=== PATIENT | male | born 1995 | race Caucasian/White ===

== ENCOUNTER 2018-11-11 10:39 | Emergency (ER) | payer OTHER ==
[2018-11-11] MEDS ORDERED: NS 500 ML IV ONE (10:45)
[2018-11-11] MEDS ORDERED: MORPHINE 4 MG/ML 1ML VIAL/SYRINGE (J2270) IV PRN (10:45)
[2018-11-11] MEDS ORDERED: ONDANSETRON 4MG/2ML VIAL (J2405) IV ONE (10:45)
[2018-11-11] MEDS ORDERED: ISOVUE-370 76% 100ML VIAL (Q9967) As Ordered ONE (10:47)
--- NOTE | 2018-11-11 11:14 | REP ---
CT Head without contrast HISTORY: Trauma COMPARISON: None There is no intraparenchymal hemorrhage, acute infarct, mass or midline shift. The ventricular system is normal in appearance. There is no extra cerebral collection. There is no fracture. The visualized sinuses are clear. IMPRESSION: There is no intracranial lesion. Electronically Signed by Tk Davis MD 11/11/2018 11:05 A
--- NOTE | 2018-11-11 11:20 | REP ---
CT cervical spine without contrast HISTORY: Trauma COMPARISON: None There is no acute fracture or subluxation. A small ossified density is present anterior to the C5-6 intervertebral disc. This represents ligamentous calcification. There is no disc bulge or herniation. The spinal canal and neural foramina are patent. The intervertebral discs and vertebral bodies are normal in height. IMPRESSION: There is no acute fracture or subluxation. Electronically Signed by Tk Davis MD 11/11/2018 11:11 A
--- NOTE | 2018-11-11 11:24 | REP ---
CT thoracic spine without contrast. HISTORY: Trauma COMPARISON : None There is no acute fracture or subluxation. There is no disc bulge or herniation. The spinal canal and neural foramina are patent. The intervertebral discs and vertebral bodies are normal in height. IMPRESSION: There is no acute fracture or subluxation. Electronically Signed by Tk Davis MD 11/11/2018 11:15 A
[2018-11-11 11:28] LABS: BASO % 0.2 % (0.0-1.0); EOS % 0.1 % (0.0-3.0); HEMATOCRIT 43.2 % (42.0-52.0); HEMOGLOBIN 14.9 g/dl (13.5-17.5); LYMPH # 1.9 10^3/uL (1.5-6.5); LYMPH % 13.4 % (24.0-44.0); MEAN CORPUSCULAR HEMOGLOBIN 28.8 pg (27.0-33.0); MEAN CORPUSCULAR HGB CONC 34.5 g/dl (32.0-36.5); MEAN CORPUSCULAR VOLUME 83.6 fl (80.0-96.0); MONO # 0.6 10^3/uL (0.0-0.8); MONO % 4.3 % (0.0-5.0); NEUTROPHILS # 11.3 10^3/uL (1.8-7.7); NEUTROPHILS % 81.6 % (36.0-66.0); PLATELET COUNT, AUTOMATED 261 10^3/uL (150-450); RED BLOOD COUNT 5.17 10^6/uL (4.30-6.10); WHITE BLOOD COUNT 13.8 10^3/uL (4.0-10.0)
--- NOTE | 2018-11-11 11:29 | REP ---
CT Lumbar Spine without contrast HISTORY: Trauma COMPARISON: None There is no disc bulge or herniation at the L1-2 through through L3-4 and L5-L1 levels. The nerves exit the neural foramina without compression. A diffuse disc bulge is present at the L4-5 level. There is minimal compression of the thecal sac. The L4 nerves exit the neural foramina without compression. The intervertebral discs and vertebral bodies are normal in height. There is no fracture or subluxation. IMPRESSION: Diffuse disc bulge at the L4-5 level with minimal thecal sac compression. Electronically Signed by Tk Davis MD 11/11/2018 11:21 A
[2018-11-11 11:38] LABS: ABG BASE EXCESS -0.5 (-2.0-2.0); ABG HCO3 19.2 MEQ/L (22.0-26.0); ABG O2 SATURATION 99.4 % (95.0-99.0); ABG PARTIAL PRESSURE CO2 21.7 mmHg (35.0-45.0); ABG PARTIAL PRESSURE O2 179.4 mmHg (75.0-100.0); ABG STANDARD HCO3 24.1 MEQ/L (22.0-26.0); ABG TOTAL CO2 19.9 MEQ/L (22.0-29.0); ABG pH (ARTERIAL) 7.565 UNITS (7.350-7.450)
[2018-11-11 11:39] LABS: INR 1.12; PROTHROMBIN TIME 14.6 SECONDS (12.1-14.4)
[2018-11-11 11:40] LABS: PARTIAL THROMBOPLASTIN TIME 25.1 SECONDS (25.4-37.6)
--- NOTE | 2018-11-11 11:44 | REP ---
CT CHEST WITH IV CONTRAST: TECHNIQUE: Axial contrast enhanced images from the thoracic inlet to the upper abdomen using 100 mL Isovue 370 intravenous contrast material with multiplanar reformations. The lungs are clear with no infiltrate. There is no pneumothorax. There is no pleural or pericardial effusion. The heart is normal in size. No mediastinal, hilar, or chest wall lymphadenopathy is seen. Mild residual thymic tissue is seen in the anterior mediastinum. There is a 1 cm right axillary lymph node present. The visualized osseous structures appear intact. IMPRESSION: Essentially negative CT of the chest with IV contrast. Electronically Signed by Lauri Palomares MD 11/11/2018 01:33 P
[2018-11-11 11:45] VITALS: BP 126/61
[2018-11-11] MEDS ORDERED: NS 1,000 ML IV ONE (11:45)
--- NOTE | 2018-11-11 11:48 | REP ---
CT ABDOMEN AND PELVIS WITH IV CONTRAST: TECHNIQUE: Axial contrast enhanced images from the lung bases to the pubic symphysis using 100 mL Isovue 370 intravenous contrast material with multiplanar reformations. Liver, spleen, adrenals, pancreas and kidneys are normal in appearance. There is no abdominal aortic aneurysm. No adenopathy is seen. There is no free air or free fluid. There is no bowel wall thickening. No pelvic abnormality is seen. The urinary bladder appears intact. Visualized osseous structures appear intact. IMPRESSION: Negative CT abdomen and pelvis. Electronically Signed by Lauri Palomares MD 11/11/2018 01:33 P
[2018-11-11 12:03] LABS: ALBUMIN 4.2 GM/DL (3.2-5.2); ALT/SGPT 25 U/L (12-78); AMYLASE 47 U/L (25-115); BILIRUBIN,DIRECT 0.1 MG/DL (0.0-0.2); BILIRUBIN,TOTAL 0.6 MG/DL (0.2-1.0); BLOOD UREA NITROGEN 17 MG/DL (7-18); CALCIUM LEVEL 8.9 MG/DL (8.5-10.1); CARBON DIOXIDE LEVEL 22 MEQ/L (21-32); CHLORIDE LEVEL 109 MEQ/L (98-107); CPK CREATINE PHOSPHOKINASE 155 U/L (39-308); CREATININE FOR GFR 0.86 MG/DL (0.70-1.30); ETHYL ALCOHOL (ETHANOL) < 0.003 % (0.000-0.010); GLOMERULAR FILTRATION RATE > 60.0 (>60); GLUCOSE, FASTING 80 MG/DL (70-100); LIPASE 125 U/L (73-393); MB/CK RELATIVE INDEX 0.84 (< OR =4); POTASSIUM SERUM 3.8 MEQ/L (3.5-5.1); SODIUM LEVEL 140 MEQ/L (136-145); TOTAL PROTEIN 7.2 GM/DL (6.4-8.2); TROPONIN I < 0.02 NG/ML (< 0.10)
--- NOTE | 2018-11-11 12:15 | REP ---
Bilateral AP lateral foot four views History: Trauma Right foot: There is no acute fracture or dislocation. The joint spaces are normal in appearance. Impression: There is no acute fracture or dislocation. Left foot: There is no acute fracture or dislocation. The joint spaces are normal in appearance. Impression: There is no acute fracture or dislocation. Electronically Signed by Tk Davis MD 11/11/2018 12:07 P
--- NOTE | 2018-11-11 12:19 | REP ---
PELVIS, ONE VIEW: HISTORY: Trauma. Contrast material is present in the urinary bladder and ureters from a recent CT abdomen. There is no acute fracture or dislocation. The joint spaces are normal in appearance. IMPRESSION: There is no acute fracture or dislocation. Electronically Signed by Tk Davis MD 11/11/2018 12:23 P
--- NOTE | 2018-11-11 19:39 | ECGEPIP ---
Stationary ECG Study [facility] - ED Test Date: 2018-11-11 Pat Name: T[place]ON [place] Department: Room: - Gender: [employer] Professional: KAREEM : 1995 Requested By: Manpreet Castro Order Number: [id number] Reading MD: Manpreet Castro Measurements Intervals [place] Rate: 100 P: 72 MT: 216 QRS: 80 QRSD: 93 T: 52 QT: 329 QTc: 425 Interpretive Statements SINUS TACHYCARDIA WITH FIRST DEGREE AV BLOCK BASELINE ARTIFACT MAY AFFECT READING NONSPECIFIC ST T WAVE CHANGES NO OLD ECG FOR COMPARISON Electronically Signed On 11-11-2018 19:39:10 EDT by Manpreet Castro
== END 2018-11-11 12:01 | disposition short-term general hospital (02) ==
LOC: M ED 10:39 → EDBD 10:39 → M ED 12:01
DX: S06.0X9A Concussion with loss of consciousness of unspecified duration, initial encounter (principal); M54.9 Dorsalgia, unspecified; M25.551 Pain in right hip; M25.552 Pain in left hip; M25.571 Pain in right ankle and joints of right foot; M25.572 Pain in left ankle and joints of left foot; R10.2 Pelvic and perineal pain; W17.89XA Other fall from one level to another, initial encounter; Y92.139 Unspecified place military base as the place of occurrence of the external cause; Y93.39 Activity, other involving climbing, rappelling and jumping off; Y99.1 Military activity; R00.0 Tachycardia, unspecified; M51.06 Intervertebral disc disorders with myelopathy, lumbar region
CPT/HCPCS: 36600; 70450; 71260; 72125; 72128; 72131; 72170; 73620; 74177; 80048; 80076; 82150; 82550; 82553; 82803; 83605; 83690; 84484; 85025; 85610; 85730; 86850; 86900; 86901; 86920; 93005; 93041; 96374; 96375; 99285; G0480; J2270; J2405; Q9967

== ENCOUNTER → 2021-05-28 | Outpatient (REF) | payer OTHER ==
[2021-05-28 15:10] LABS: SEMEN APPEARANCE OPAQUE (OPAQUE); SEMEN VISCOSITY LIQUID (LIQUID); SEMEN VOLUME 4.9 ml (2.0-5.0); SPERM CONCENTRATION 44.3 M/ml (>=15.0); WBC CONCENTRATION <=1 M/ml (<=1 M/ml)
== END ==
LOC: M LAB REF 14:53
PROVIDERS: ATTEND Obstetrics & Gynecology
DX: N46.8 Other male infertility (principal)

== ENCOUNTER 2021-07-02 15:46 | Emergency (ER) | payer OTHER ==
[~2021-07-02] VITALS: Ht 177.8 cm; Wt 75.0 kg
[2021-07-02 15:46] VITALS: BP 176/86
[2021-07-02] MEDS ORDERED: ACET500P3 PO (15:57)
== END 2021-07-02 21:58 | disposition left against medical advice (07) ==
LOC: M ED 15:46
DX: Z53.21 Procedure and treatment not carried out due to patient leaving prior to being seen by health care provider (principal)